=== PATIENT | female | born 1960 | race Two or more races ===

== ENCOUNTER 2018-04-09 13:25 | Emergency (ER) | payer SELFPAY ==
[~2018-04-09] VITALS: Ht 154.9 cm; Wt 74.0 kg
[2018-04-09] MEDS ORDERED: OXYMETAZOLINE NASAL SPRAY 0.05%, 15ML NAS ONE (14:00)
[2018-04-09] MEDS ORDERED: BENZOCAINE 20% SPRAY 0.5ML TP ONE (14:00)
[2018-04-09] MEDS ORDERED: BENZOCAINE AEROSOL SPRAY 20%, 60ML ONE (14:20)
[2018-04-09] MEDS ORDERED: OXYMETAZOLINE NASAL SPRAY 0.05%, 15ML ONE (14:20)
[2018-04-09] MEDS ORDERED: LIDOCAINE-MPF 2%, 2ML ONE (14:21)
[2018-04-09] MEDS ORDERED: LIDOCAINE 2%, 10ML INFIL ONE (15:00)
[2018-04-09] MEDS ORDERED: LORazepam 1MG TABLET ONE (15:06)
[2018-04-09] MEDS ORDERED: LORazepam 1MG TABLET PO ONE (15:30)
[2018-04-09] MEDS ORDERED: PHENOL THROAT SPRAY BOTTLE MM ONE (16:30)
[2018-04-09 17:00] VITALS: BP 159/64
== END 2018-04-09 17:01 | disposition home or self-care (01) ==
LOC: ED 16:42
DX: R13.12 Dysphagia, oropharyngeal phase (principal)
CPT/HCPCS: 70360; 99284; J3490